=== PATIENT | male | born 1960 | race Caucasian/White ===

== ENCOUNTER 2021-03-23 08:12 | Emergency (ER) | payer OTHER | END 2021-03-23 10:25 | disposition home or self-care (01) | LOC: FER 08:12 | DX: J38.7 Other diseases of larynx (principal); E11.9 Type 2 diabetes mellitus without complications; J44.9 Chronic obstructive pulmonary disease, unspecified; F17.210 Nicotine dependence, cigarettes, uncomplicated; Z79.4 Long term (current) use of insulin | CPT/HCPCS: 70490 ==

== ENCOUNTER 2021-11-13 10:16 | Emergency (ER) | payer OTHER ==
[~2021-11-13] VITALS: Ht 160 cm; Wt 121.1 kg
[2021-11-13 11:56] LABS: BASOPHIL 0.6 % (0-2); EOSINOPHIL 1.9 % (0-5); HCT 47.9 % (42.0-52.0); HGB 15.6 g/dl (13.2-18.0); LYMPHOCYTE 15.6 % (15-48); MCH 29.2 pg (25.0-31.0); MCHC 32.6 g/dL (32.0-36.0); MCV 89.7 fL (78.0-100.0); MONOCYTE 8.2 % (0-12); MPV 9.8 fL (6.0-9.5); NEUTROPHIL 73.3 % (41-80); NRBC 0; PLT 373 K/uL (150-400); RBC 5.34 M/uL (4.70-6.00); RDW 14.1 % (11.5-14.0); WBC 10.1 K/uL (4.0-10.5)
[2021-11-13 12:11] LABS: BUN/CREAT RATIO (CALC) 21.2 RATIO; CREATININE 0.85 mg/dL (0.67-1.17); POTASSIUM 4.5 mmol/L (3.5-5.1)
[2021-11-13] MEDS ORDERED: CIPRODEX OTIC7.5 M1 AS (14:03)
== END 2021-11-13 15:01 | disposition home or self-care (01) ==
LOC: FER 10:16
PROVIDERS: Emergency Medicine
DX: H60.92 Unspecified otitis externa, left ear (principal); E11.9 Type 2 diabetes mellitus without complications; J44.9 Chronic obstructive pulmonary disease, unspecified; I10 Essential (primary) hypertension; F17.200 Nicotine dependence, unspecified, uncomplicated
CPT/HCPCS: 36415; 70487; 80048; 85025; Q9967

== ENCOUNTER 2022-02-24 21:43 | Emergency (ER) | payer OTHER ==
[~2022-02-24 21:43] MED LIST: CIPRODEX OTIC7.5 M1 AS
[2022-02-24 23:14] LABS: BASOPHIL 0.5 % (0-2); EOSINOPHIL 2.6 % (0-5); HCT 43.1 % (42.0-52.0); HGB 13.9 g/dl (13.2-18.0); LYMPHOCYTE 16.4 % (15-48); MCH 29.5 pg (25.0-31.0); MCHC 32.3 g/dL (32.0-36.0); MCV 91.5 fL (78.0-100.0); MONOCYTE 10.5 % (0-12); MPV 10.7 fL (6.0-9.5); NEUTROPHIL 69.7 % (41-80); NRBC 0; PLT 298 K/uL (150-400); RBC 4.71 M/uL (4.70-6.00); RDW 14.7 % (11.5-14.0); WBC 9.8 K/uL (4.0-10.5)
[2022-02-24 23:37] LABS: ALBUMIN 2.9 g/dL (3.4-5.0); BILIRUBIN - TOTAL 0.4 mg/dL (0.2-1.0); BUN/CREAT RATIO (CALC) 34.6 RATIO; CREATININE 1.04 mg/dL (0.67-1.17); GLOBULIN (CALCULATION) 3.8 g/dL; POTASSIUM 4.4 mmol/L (3.5-5.1); TOTAL PROTEIN 6.7 g/dL (6.4-8.2)
[2022-02-24 23:52] LABS: CORONAVIRUS 2019 SARS-COV-2 NEGATIVE (NEGATIVE); INFLUENZA A NAA NEGATIVE (NEGATIVE)
[2022-02-25 00:26] LABS: BILIRUBIN NEGATIVE (NEGATIVE); BLOOD NEGATIVE Ery/uL (NEGATIVE); COLOR YELLOW (YELLOW); GLUCOSE (U) TRACE mg/dL (NORMAL); LEUKOCYTES NEGATIVE Leu/uL (NEGATIVE); NITRITE NEGATIVE (NEGATIVE); PROTEIN NEGATIVE (NEGATIVE); UROBILINOGEN 0.2 mg/dL (0.2-1.0)
[2022-02-25 00:30] LABS: CLARITY CLEAR (CLEAR)
[2022-02-25] MEDS ORDERED: AZITHROMYCIN250 MG PO (02:05)
[2022-02-25] MEDS ORDERED: MEDROL 4MG DOSEP4 MG PO (02:05)
== END 2022-02-25 02:18 | disposition home or self-care (01) ==
LOC: FER 21:43
PROVIDERS: Internal Medicine
DX: J44.1 Chronic obstructive pulmonary disease with (acute) exacerbation (principal); I10 Essential (primary) hypertension; E11.9 Type 2 diabetes mellitus without complications; F17.210 Nicotine dependence, cigarettes, uncomplicated; Z79.4 Long term (current) use of insulin; Z79.84 Long term (current) use of oral hypoglycemic drugs; Z20.822 Contact with and (suspected) exposure to COVID-19
CPT/HCPCS: 36415; 71250; 80053; 81003; 83690; 83880; 84145; 84484; 85025; 93005; 94640; 94664; J1100; U0002